=== PATIENT | male | born 1990 | race Caucasian/White ===

== ENCOUNTER 2023-05-27 10:34 | Emergency (ER) | payer SELFPAY ==
[2023-05-27] MEDS ORDERED: HYDROmorphone 1 MG/ML Syringe IVPUSH ONE (11:31)
[2023-05-27] MEDS ORDERED: Ketorolac 30 MG/ML SDV IVPUSH ONE (11:31)
[2023-05-27] MEDS ORDERED: Dexamethasone 10 MG/ML SDV IVPUSH ONE (11:31)
[2023-05-27] MEDS ORDERED: Dexamethasone 10 MG/ML SDV IM STA (12:05)
[2023-05-27] MEDS ORDERED: Orphenadrine 60 MG/2 ML Inj IM ONE (12:05)
[2023-05-27] MEDS ORDERED: Ketorolac 30 MG/ML SDV IM ONE (12:05)
[2023-05-27] MEDS ORDERED: Cyclobenzaprine 10 MG Tab PO STA (12:12)
== END 2023-05-27 14:34 | disposition home or self-care (01) ==
LOC: MW.ED 10:34
DX: M51.26 Other intervertebral disc displacement, lumbar region (principal)
CPT/HCPCS: 72148; 96372; 99283; A9270; J1100; J1885